=== PATIENT | female | born 1990 | race African-American/Black ===

== ENCOUNTER 2016-06-26 12:34 | Emergency (ER) | payer SELFPAY ==
[~2016-06-26] VITALS: Ht 162.6 cm; Wt 86.2 kg
[2016-06-26 12:55] VITALS: BP 155/102
[2016-06-26 13:26] LABS: NEGATIVE OBC STREP NEG; POSITIVE OBC STREP POS
[2016-06-26] MEDS ORDERED: HYDR115S2 PO (13:40)
[2016-06-26] MEDS ORDERED: AZIT250T PO (13:40)
--- NOTE | 2016-06-26 13:40 | PHYS DOC ---
Past Medical History Past Medical History: Other Additional Past Medical Histor: GASTRIC ULCERS Past Surgical History: Other Additional Past Surgical Histo: ABCESS REMOVED FROM BUTTOCKS Alcohol Use: Occasionally Drug Use: None Adult General Chief Complaint Chief Complaint: MULTIPLE COMPLAINTS HPI HPI Patient is a 26 year old female presents emergency room with multiple complaints that involve fever, body aches, chills, nonproductive cough and sore throat that began within the past week. Patient denies any known contact with anyone with strep or mononucleosis or influenza. Patient was seen at [facility] yesterday and had an influenza swab done which was negative. Patient denies antibiotic use, hospitalization or foreign travel within the past 90 days. Review of Systems Review of Systems Constitutional: Denies fever or chills [] Eyes: Denies change in visual acuity, redness, or eye pain [] HENT: Denies nasal congestion or sore throat [] Respiratory: Denies cough or shortness of breath [] Cardiovascular: No additional information not addressed in HPI [] GI: Denies abdominal pain, nausea, vomiting, bloody stools or diarrhea [] : Denies dysuria or hematuria [] Musculoskeletal: Denies back pain or joint pain [] Integument: Denies rash or skin lesions [] Neurologic: Denies headache, focal weakness or sensory changes [] Endocrine: Denies polyuria or polydipsia [] Allergies Allergies Allergies Coded Allergies Type Severity Reaction Last Updated Verified cephalexin Allergy Intermediate 06/26/16 Yes Physical Exam Physical Exam Constitutional: Well developed, well nourished, no acute distress, non-toxic appearance. Patient appears ill but nontoxic. She demonstrates a harsh, bronchitic cough. HENT: Normocephalic, atraumatic, bilateral external ears normal, oropharynx moist, no oral exudates, nose normal. There is no crepitation or speech or trismus. Posterior oropharynx is mildly erythematous without exudative plaques on the tonsils, tonsillar enlargement, peritonsillar swelling or uvular deviation. Eyes: PERRLA, EOMI, conjunctiva normal, no discharge. [] Neck: Normal range of motion, no tenderness, supple, no stridor. There is no meningismus. There is bilateral anterior and posterior cervical lymphadenopathy. Cardiovascular:Heart rate regular rhythm, no murmur [] Lungs & Thorax: Patient has mild central coarse wheezing the resonates to the bilateral lung benavidez. This does clear with deep breath and forced cough. She has no evidence of respiratory distress respiratory fatigue. Oxygen saturation is 97% on room air. Abdomen: Bowel sounds normal, soft, no tenderness, no masses, no pulsatile masses. [] Skin: Warm, dry, no erythema, no rash. [] Back: No tenderness, no CVA tenderness. [] Extremities: No tenderness, no cyanosis, no clubbing, ROM intact, no edema. [] Neurologic: Alert and oriented X 3, normal motor function, normal sensory function, no focal deficits noted. [] Psychologic: Affect normal, judgement normal, mood normal. [] Current Patient Data Vital Signs Vital Signs Date Time Temp Pulse Resp B/P Pulse Ox O2 Delivery O2 Flow Rate FiO2 06/26/16 12:55 98.4 80 22 100 Room Air 98.4 Lab Values Laboratory Tests Test 06/26/16 12:57 Group A Streptococcus Rapid Negative (NEGATIVE) EKG EKG [] Radiology/Procedures Radiology/Procedures [] Course & Med Decision Making Course & Med Decision Making Pertinent Labs and Imaging studies reviewed. (See chart for details) [] Dragon Disclaimer Dragon Disclaimer This electronic medical record was generated, in whole or in part, using a voice recognition dictation system. Departure Departure Impression: Primary Impression: Viral syndrome Additional Impression: Bronchitis Disposition: 01 HOME, SELF-CARE Condition: GOOD Referrals: NO PCP (PCP) DWAYNE WEBB MD Patient Instructions: Acute Bronchitis, [id number], Viral Syndrome Additional Instructions: 1. Take medication as prescribed. 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 2. Review the discharge instructions for self-care and reasons to return to the emergency department. 3. Call the phone number listed in this paperwork to establish a follow-up appointment with a primary care doctor's office. Please call tomorrow and make this happen. Scripts Hydrocodone/Chlorphen Polis (Tussionex Pennkinetic Susp)480 Ml Mod[place].er.[id number] Ml PO BID #100 ML Prov:GRECIA ONTIVEROS 06/26/16 Azithromycin (Zithromax)250 Mg Tablet1 Pkg PO UD #6 TAB Prov:GRECIA ONTIVEROS 06/26/16 Problem Qualifiers GRECIA ONTIVEROS Jun 26, 2016 13:40
== END 2016-06-26 13:55 | disposition home or self-care (01) ==
LOC: ER 12:34
DX: B34.9 Viral infection, unspecified (principal); J40 Bronchitis, not specified as acute or chronic; Z88.1 Allergy status to other antibiotic agents
CPT/HCPCS: 87070; 87880; 99283

== ENCOUNTER 2016-07-09 18:33 | Emergency (ER) | payer SELFPAY ==
[~2016-07-09 18:33] MED LIST: AZIT250T PO; HYDR115S2 PO
[2016-07-09 19:33] VITALS: BP 123/81
--- NOTE | 2016-07-09 20:31 | PHYS DOC ---
Past Medical History Past Medical History: Other Additional Past Medical Histor: GASTRIC ULCERS Past Surgical History: Other Additional Past Surgical Histo: ABCESS REMOVED FROM BUTTOCKS Alcohol Use: Occasionally Drug Use: None Adult General Chief Complaint Chief Complaint: DENTAL PROBLEM [facility] HPI Patient is a 26 year old female presents with bilateral wisdom tooth pain and sore throat for 2-3 days. Denies fever, difficulty swallowing, known illness exposure. Took Tylenol at home Review of Systems Review of Systems Constitutional: Denies fever or chills Eyes: Denies change in visual acuity, redness, or eye pain HENT: Denies nasal congestion. Sore throat 3 days. Dentla pain Respiratory: Denies cough or shortness of breath Cardiovascular: No additional information not addressed in HPI GI: Denies abdominal pain, nausea, vomiting, bloody stools or diarrhea : Denies dysuria or hematuria Musculoskeletal: Denies back pain or joint pain Integument: Denies rash or skin lesions Neurologic: Denies headache, focal weakness or sensory changes Endocrine: Denies polyuria or polydipsia Allergies Allergies Allergies Coded Allergies Type Severity Reaction Last Updated Verified cephalexin Allergy Intermediate 06/26/16 Yes Physical Exam Physical Exam Constitutional: Well developed, well nourished, no acute distress, non-toxic appearance. HENT: Normocephalic, atraumatic, bilateral external ears normal, nose normal. Oropharynx erythematous. Bilateral lower wisdom teeth coming through at forward slant. Gum erythematous surrounding without abscess Eyes: PERRLA, EOMI, conjunctiva normal, no discharge. Neck: Normal range of motion, no tenderness, supple, no stridor. Cardiovascular:Heart rate regular rhythm, no murmur Lungs & Thorax: Bilateral breath sounds clear to auscultation Abdomen: Bowel sounds normal, soft, no tenderness, no masses, no pulsatile masses. Skin: Warm, dry, no erythema, no rash. Back: No tenderness, no CVA tenderness. Extremities: No tenderness, no cyanosis, no clubbing, ROM intact, no edema. Neurologic: Alert and oriented X 3, normal motor function, normal sensory function, no focal deficits noted. Psychologic: Affect normal, judgement normal, mood normal. [] Current Patient Data Vital Signs Vital Signs Date Time Temp Pulse Resp B/P Pulse Ox O2 Delivery O2 Flow Rate FiO2 07/09/16 19:33 98.2 89 18 100 Room Air 98.2 Lab Values Laboratory Tests Test 07/09/16 20:00 Group A Streptococcus Rapid Negative (NEGATIVE) EKG EKG [] Radiology/Procedures Radiology/Procedures [] Impressions: 1. Dental pain 2. Pharyngitis Course & Med Decision Making Course & Med Decision Making Pertinent Labs and Imaging studies reviewed. (See chart for details) [] Dragon Disclaimer Dragon Disclaimer This electronic medical record was generated, in whole or in part, using a voice recognition dictation system. Departure Departure Impression: Primary Impression: Pharyngitis Additional Impression: Pain, dental Disposition: HOME, SELF-CARE Condition: STABLE Referrals: NO PCP (PCP) Patient Instructions: Dental Pain, [id number], Viral and Bacterial Pharyngitis, [id number] Additional Instructions: Take medication as prescribed. Follow up with dentist and primary doctor in 1-2 days. Return if problems or concerns Scripts Tramadol Hcl 50 Mg [id number] Mg PO Q6H PRN PAIN #20 TAB Prov:BEATRICE MCGREGOR APRN 07/09/16 Problem Qualifiers BEATRICE MCGREGOR APRN Jul 09, 2016 20:31
[2016-07-09] MEDS ORDERED: TRAM50TA PO (20:47)
[2016-07-10 08:42] LABS: NEGATIVE OBC STREP NEG; POSITIVE OBC STREP POS
--- NOTE | 2016-07-13 13:48 | VNOTE ---
CALL BACK NOTE CALL BACK Microbiology 07/09/16 Throat Culture - Final, Complete 07/09/16 - Final, Complete 07/09/16 - Final, Complete Attempted to contact the patient via the number provided by registration. This number is no longer the patient's phone number. This number belongs to her sister who will and try to contact her. At this time the patient is positive for group C strep noted from the throat culture. Patient was not treated from the emergency department. DESTINY RIGGS NP Jul 13, 2016 13:48
--- NOTE | 2016-07-13 15:48 | VNOTE ---
CALL BACK NOTE CALL BACK Microbiology 07/09/16 Throat Culture - Final, Complete 07/09/16 - Final, Complete 07/09/16 - Final, Complete Patient did return my call. She was notified that she does have group see strep. Amoxicillin was called into the [facility] at [facility] in [place]. DESTINY RIGGS NP Jul 13, 2016 15:48
== END 2016-07-09 20:52 | disposition home or self-care (01) ==
LOC: ER 18:33
DX: J02.9 Acute pharyngitis, unspecified (principal); K08.89 Other specified disorders of teeth and supporting structures; Z88.1 Allergy status to other antibiotic agents
CPT/HCPCS: 87070; 87880; 99283

== ENCOUNTER 2016-10-06 10:53 | Emergency (ER) | payer SELFPAY ==
[~2016-10-06 10:53] MED LIST changes: +TRAM50TA PO
[2016-10-06 11:15] VITALS: BP 129/62
--- NOTE | 2016-10-06 12:02 | ED.ADGEN ---
Past Medical History Past Medical History: Other Additional Past Medical Histor: GASTRIC ULCERS Past Surgical History: Other Additional Past Surgical Histo: ABCESS REMOVED FROM BUTTOCKS Alcohol Use: Occasionally Drug Use: None Adult General Chief Complaint Chief Complaint: EYE PROBLEMS HPI HPI Patient is a 26 year old female presents with left-sided facial pain resulting from injury 1 month ago. Patient was not evaluated for this injury or to today's visit.. She reports tenderness to palpation over left cheekbone. She denies change in vision. Review of Systems Review of Systems Review symptoms as per history of present illness. All other review of symptoms are negative. Allergies Allergies Allergies Coded Allergies Type Severity Reaction Last Updated Verified cephalexin Allergy Intermediate 06/26/16 Yes Physical Exam Physical Exam Constitutional: Well developed, well nourished, no acute distress, non-toxic appearance. HENT: Normocephalic, subtle bony deformity to left zygomatic arch region with topical bony deformity below skin, no tenting, bilateral external ears normal, oropharynx moist, no oral exudates, nose normal. Eyes: PERRL. Extraocular muscles intact. Current Patient Data Vital Signs Vital Signs Date Time Temp Pulse Resp B/P Pulse Ox O2 Delivery O2 Flow Rate FiO2 10/06/16 11:15 98.3 71 18 98 Room Air 98.3 EKG EKG [] Radiology/Procedures Radiology/Procedures [] Course & Med Decision Making Course & Med Decision Making Pertinent Labs and Imaging studies reviewed. (See chart for details) [Patient instructed to follow-up with PCP for referral and evaluation by oral maxillofacial surgeon. No treatment indicated today in the emergency department. ] Dragon Disclaimer Dragon Disclaimer This electronic medical record was generated, in whole or in part, using a voice recognition dictation system. CAESAR BACK DO October 06, 2016 12:02
== END 2016-10-06 12:04 | disposition home or self-care (01) ==
LOC: ER 10:53
DX: R51 Headache (principal); Z88.1 Allergy status to other antibiotic agents
CPT/HCPCS: 99281

== ENCOUNTER 2017-02-09 15:18 | Emergency (ER) | payer SELFPAY ==
[~2017-02-09] VITALS: Ht 162.6 cm; Wt 86.2 kg
[2017-02-09 16:09] VITALS: BP 135/83
[2017-02-09 16:16] LABS: BILIRUBIN,URINE NEGATIVE (NEG); GLUCOSE,URINE NEGATIVE (NEG); NITRITE,URINE POSITIVE (NEG); PH,URINE 6.5; PROTEIN,URINE >=300 mg/dL (NEG-TRACE); UROBILINOGEN,URINE 0.2 mg/dL (0.2 mg/dL)
[2017-02-09 16:25] LABS: BACTERIA,URINE FEW /HPF (0-FEW); SQUAMOUS EPITHELIAL CELL,UR OCC /LPF
[2017-02-09] MEDS ORDERED: SULF1TAB24 PO (16:44)
[2017-02-09] MEDS ORDERED: TRAM-48 PO (16:44)
[2017-02-09] MEDS ORDERED: PHEN100T82 PO (16:44)
--- NOTE | 2017-02-09 16:44 | PHYS DOC ---
Past Medical History Past Medical History: Other Additional Past Medical Histor: GASTRIC ULCERS Past Surgical History: Other Additional Past Surgical Histo: ABCESS REMOVED FROM BUTTOCKS Alcohol Use: Occasionally Drug Use: None Adult General Chief Complaint Chief Complaint: PAIN ON URINATION [facility] HPI Patient is a 26 year old female with no significant medical history who presents with dysuria and trace amount of blood when she works herself that she noted today. Patient denies any fever nausea vomiting. Denies any personal family history of kidney stones. Review of Systems Review of Systems Constitutional: Denies fever or chills [] Eyes: Denies change in visual acuity, redness, or eye pain [] HENT: Denies nasal congestion or sore throat [] Respiratory: Denies cough or shortness of breath [] Cardiovascular: No additional information not addressed in HPI [] GI: Denies abdominal pain, nausea, vomiting, bloody stools or diarrhea [] : dysuria and hematuria [] Musculoskeletal: Denies back pain or joint pain [] Integument: Denies rash or skin lesions [] Neurologic: Denies headache, focal weakness or sensory changes [] Allergies Allergies Allergies Coded Allergies Type Severity Reaction Last Updated Verified cephalexin Allergy Intermediate 06/26/16 Yes Physical Exam Physical Exam Constitutional: Well developed, well nourished, no acute distress, non-toxic appearance. [] HENT: Normocephalic, atraumatic, bilateral external ears normal, oropharynx moist, no oral exudates, nose normal. [] Eyes: PERRLA, EOMI, conjunctiva normal, no discharge. [] Neck: Normal range of motion, no tenderness, supple, no stridor. [] Cardiovascular:Heart rate regular rhythm, no murmur [] Lungs & Thorax: Bilateral breath sounds clear to auscultation [] Abdomen: Bowel sounds normal, soft, no tenderness, no masses, no pulsatile masses. [] Skin: Warm, dry, no erythema, no rash. [] Back: No tenderness, no CVA tenderness. [] Extremities: No tenderness, no cyanosis, no clubbing, ROM intact, no edema. [] Neurologic: Alert and oriented X 3, normal motor function, normal sensory function, no focal deficits noted. [] Psychologic: Affect normal, judgement normal, mood normal. [] Current Patient Data Vital Signs Vital Signs Date Time Temp Pulse Resp B/P (MAP) Pulse Ox O2 Delivery O2 Flow Rate FiO2 02/09/17 16:09 98.4 97 18 99 Room Air 98.4 Lab Values Laboratory Tests Test 02/09/17 14:53 02/09/17 15:35 POC Urine HCG, Qualitative Hcg negative (Negative) Urine Color Yellow Urine Clarity Turbid Urine pH 6.5 Urine Specific [place] 1.025 Urine Protein >=300 mg/dL (NEG-TRACE) Urine Glucose (UA) Negative mg/dL (NEG) Urine Ketones (Stick) Negative mg/dL (NEG) Urine Blood Large (NEG) Urine Nitrite Positive (NEG) Urine Bilirubin Negative (NEG) Urine Urobilinogen Dipstick 0.2 mg/dL (0.2 mg/dL) Urine Leukocyte Esterase Small (NEG) Urine RBC 6-10 /HPF (0-2) Urine WBC 5-10 /HPF (0-4) Urine Squamous Epithelial Cells Occ /LPF Urine Amorphous Sediment Present /HPF Urine Bacteria Few /HPF (0-FEW) Urine Mucus Slight /LPF EKG EKG [] Radiology/Procedures Radiology/Procedures [] Course & Med Decision Making Course & Med Decision Making Pertinent Labs and Imaging studies reviewed. (See chart for details) Patient is positive for urinary tract infection, discharged with Pyridium Ultram and Bactrim. Instructed to push fluids. Follow up with the primary care doctor in one week. Provided return precautions and discharged in stable condition. Dragon Disclaimer Dragon Disclaimer This electronic medical record was generated, in whole or in part, using a voice recognition dictation system. Departure Departure Impression: Primary Impression: Urinary tract infection Disposition: HOME, SELF-CARE Condition: STABLE Referrals: NO PCP (PCP) follow up with your doctor in one week Patient Instructions: Urinary Tract Infection Additional Instructions: You were seen with urinary tract infection. Complete your antibiotics. Push fluids. Follow-up with your doctor in 1-2 weeks. Come back to the ED if symptoms worsen. Scripts Tramadol Hcl (ULTRAM) 50 Mg Tablet 1 TAB PO Q6HRS, #30 TAB Prov: MUTUNGAGEOVANI USED [employer] READ[employer] MECHANIC 02/09/17 Phenazopyridine Hcl (PYRIDIUM) 100 Mg Tablet 100 MG PO TID, #9 TAB Prov: MUTUNGAGEOVANI USED [employer]CH[employer]IC 02/09/17 Sulfamethoxazole/Trimethoprim (BACTRIM DS TABLET) 1 Each Tablet 1 TAB PO BID, #6 TAB Prov: MUTUNGA,GEOVANI USED [employer] MECH[employer]IC 02/09/17 Problem Qualifiers Primary Impression: Urinary tract infection Urinary tract infection type: acute cystitis Hematuria presence: with hematuria Qualified Codes: N30.01 - Acute cystitis with hematuria GEOVANI PERALTA APRN Feb 09, 2017 16:44
[2017-02-09] MEDS ORDERED: traMADol 50 MG TABLET PO ONE (16:45)
[2017-02-09] MEDS ORDERED: PHENAZOPYRIDINE 200 MG TABLET. PO ONE (16:45)
== END 2017-02-09 16:54 | disposition home or self-care (01) ==
LOC: ER 15:18
DX: N30.01 Acute cystitis with hematuria (principal); Z88.1 Allergy status to other antibiotic agents
CPT/HCPCS: 81001; 81025; 99283

== ENCOUNTER 2017-09-24 08:50 | Emergency (ER) | payer SELFPAY ==
[2017-09-24] MEDS: ONDANSETRON ODT 4 MG TAB.RAPDIS. PO (09:47)
[2017-09-24] MEDS: AZITHROMYCIN 250 MG TABLET. PO (09:49)
[2017-09-24] MEDS: metroNIDAZOLE 500 MG TABLET PO (09:49)
[2017-09-24 09:59] LABS: URINE HCG POC HCG NEGATIVE (Negative)
[2017-09-24 10:00] LABS: BILIRUBIN,URINE NEGATIVE (NEG); CLARITY,URINE CLOUDY; COLOR,URINE YELLOW; GLUCOSE,URINE NEGATIVE (NEG); NITRITE,URINE NEGATIVE (NEG); PROTEIN,URINE NEGATIVE (NEG-TRACE)
[2017-09-24 10:07] LABS: BACTERIA,URINE MODERATE /HPF (0-FEW); RBC,URINE OCC /HPF (0-2); SQUAMOUS EPITHELIAL CELL,UR MOD /LPF
[2017-09-24] MEDS: cefTRIAXone IM 250 MG VIAL IM (10:11)
[2017-09-25 14:30] LABS: CHLAMYDIA PROBE Negative (Negative); GC PROBE Negative (Negative)
== END 2017-09-24 10:40 | disposition home or self-care (01) ==
LOC: ER 08:50
DX: L02.31 Cutaneous abscess of buttock (principal); Z20.2 Contact with and (suspected) exposure to infections with a predominantly sexual mode of transmission; F12.10 Cannabis abuse, uncomplicated; Z88.1 Allergy status to other antibiotic agents
CPT/HCPCS: 81001; 81025; 87086; 87491; 87591; 96372; 99284; J0696; Q0111; Q0144; Q0162